=== PATIENT | female | born 1975 ===

== ENCOUNTER 2017-06-30 10:52 | Emergency (ER) | payer OTHER ==
[2017-06-30 11:12] VITALS: O2SAT 97
[2017-06-30 11:26] VITALS: BMI 29.2
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
[2017-06-30 14:06] VITALS: BP 104/66; PULSE 76; RESP 16; TEMP 99
== END 2017-06-30 14:06 | disposition home or self-care (01) ==
LOC: C.ER 10:52
DX: S16.1XXA Strain of muscle, fascia and tendon at neck level, initial encounter (principal); S20.212A Contusion of left front wall of thorax, initial encounter; S43.402A Unspecified sprain of left shoulder joint, initial encounter; V43.62XA Car passenger injured in collision with other type car in traffic accident, initial encounter; Y92.410 Unspecified street and highway as the place of occurrence of the external cause